=== PATIENT | female | born 1985 | race Two or more races ===

== ENCOUNTER 2017-01-21 16:28 | Emergency (ER) | payer OTHER ==
[~2017-01-21] VITALS: Ht 170.2 cm; Wt 50.8 kg
[~2017-01-21 16:28] MED LIST: NKM
[2017-01-21 17:16] LABS: APPEARANCE,URINE SLIGHTLY CLOUDY; KETONES,URINE NEGATIVE (NEGATIVE); LEUKOCYTE ESTERASE ,URINE 1+ (NEGATIVE); NITRITE,URINE NEGATIVE (NEGATIVE); PH,URINE 6 (4.5-8.0); PROTEIN,URINE NEGATIVE (NEGATIVE); UROBILINOGEN,URINE NORMAL MG/DL (0.0-1.0)
[2017-01-21 17:25] LABS: BACTERIA,URINE FEW /HPF; RBC,URINE TNTC /HPF (0 - 2); SQUAMOUS EPITHELIAL CELL,UR MODERATE /LPF (NONE/OCC)
--- NOTE | 2017-01-21 18:16 | Emergency Room Report ---
History of Present Illness General Chief Complaint: Complications Source: Patient Present Illness HPI 31-year-old female presents to the emergency department complaining of 4-10 in severity lower uterine cramping with vaginal bleeding x1 hour. Patient is and states that she did a at home urine test which was +3 days ago. Patient has not had [employer] followup. Patient denies fevers, chills, nausea, vomiting, constipation, diarrhea, and travel or ill contacts. She denies abdominal tenderness. Denies CP, Palpitations, LOC, AMS, dizziness, Changes in Vision, Sensation, paresthesias, or a sudden severe headache. Allergies: Coded Allergies: No Known Allergies (Unverified , 01/21/17) Patient History Past Medical History: see triage record Past Surgical History: none Pertinent Family History: none Now: No Reviewed Nursing Documentation: PMH: Agreed, PSxH: Agreed Nursing Documentation-PMH Past Medical History: No History, Except For Review of Systems All Other Systems: negative except mentioned in HPI Physical Exam Vital Signs Date Time Temp Pulse Resp B/P (MAP) Pulse Ox O2 Delivery O2 Flow Rate FiO2 01/21/17 16:19 98.2 67 17 105/71 99 Sp02 EP Interpretation: reviewed, normal General Appearance: no apparent distress, alert, GCS 15, non-toxic Head: normocephalic, atraumatic Eyes: bilateral eye normal inspection, bilateral eye PERRL ENT: hearing grossly normal, normal voice Neck: full range of motion Respiratory: lungs clear, normal breath sounds, speaking full sentences Cardiovascular #1: regular rate, rhythm Gastrointestinal: normal bowel sounds, non tender, soft, no guarding, no rebound Rectal: deferred Genitourinary: adnexa normal, ext genitalia/vag normal, other - OS is open, moderate BRB in the vaginal vault. Musculoskeletal: back normal, gait/station normal, normal range of motion Neurologic: alert, oriented x3, responsive, motor strength/tone normal, sensory intact, speech normal Skin: normal color, no rash, warm/dry, well hydrated Lymphatic: no adenopathy Medical Decision Making PA Attestation Dr. [email or web address] is my supervising Physician whom patient management has been discussed with. Diagnostic Impression: Primary Impression: Threatened in early ER Course 31-year-old female presents to the emergency department complaining of 4-10 in severity lower uterine cramping with vaginal bleeding x1 hour. Patient is and states that she did a at home urine test which was +3 days ago. Patient has not had [employer] followup. Patient denies fevers, chills, nausea, vomiting, constipation, diarrhea, and travel or ill contacts. She denies abdominal tenderness. Denies CP, Palpitations, LOC, AMS, dizziness, Changes in Vision, Sensation, paresthesias, or a sudden severe headache. Ddx considered but are not limited to: Fibroid, ectopic , Fibroid, Spontaneous Vital signs: are WNL, pt. is afebrile Pelvic Exam: OS is open, moderate BRB in the vaginal vault. H&PE are most consistent with: spontaneous , os is open with bleeding, will do US to look for retained products or ectopic ORDERS: -Urine hcg- Negative -serum Hcg Quant: 12 - Blood/RH type and screen- see attached labs ( O POSITIVE) -Pelvic US complete- IUP, thickened endometrium, moderate amount of blood in the vaginal vault. per fastener technologist verbal report ED INTERVENTIONS: -Tylenol PO -Discussed with patient that she needs to followup with [employer] for serial hCG measurements. Discussed with patient to return to the emergency department with worsening or new symptoms. DISCHARGE: At this time pt. is stable for d/c to home. Will provide printed patient care instructions, and any necessary prescriptions. Care plan and follow up instructions have been discussed with the patient prior to discharge. Labs Test 01/21/17 16:50 Urine Color Pale yellow Urine Appearance Slightly cloudy Urine pH 6 (4.5-8.0) Urine Specific [place] 1.015 (1.005-1.035) Urine Protein Negative (NEGATIVE) Urine Glucose (UA) Negative (NEGATIVE) Urine Ketones Negative (NEGATIVE) Urine Occult Blood 5+ (NEGATIVE) Urine Nitrite Negative (NEGATIVE) Urine Bilirubin Negative (NEGATIVE) Urine Urobilinogen Normal MG/DL (0.0-1.0) Urine Leukocyte Esterase 1+ (NEGATIVE) Urine RBC Tntc /HPF (0 - 2) Urine WBC 5-10 /HPF (0 - 2) Urine Squamous Epithelial Cells Moderate /LPF (NONE/OCC) Urine Bacteria Few /HPF (NONE) Urine HCG, Qualitative Negative Human Chorionic Gonadotropin, Quant 12 mIU/mL (1-6) Last Vital Signs Date Time Temp Pulse Resp B/P (MAP) Pulse Ox O2 Delivery O2 Flow Rate FiO2 01/21/17 16:19 98.2 67 17 105/71 99 Disposition: HOME, SELF-CARE Condition: Stable Scripts Acetaminophen* (TYLENOL EXTRA STRENGTH*) 500 Mg Tablet 500 MG ORAL Q6H, #20 TAB 0 Refills Prov: Anneliese Thompson 01/21/17 Referrals: NOT CHOSEN IPA/MD,REFERRING (PCP) Patient Instructions: Miscarriage, [id number], Threatened Miscarriage Additional Instructions: Take medications as directed. Follow up with a OBGYN in 3 days, even if your symptoms have resolved. --Your HCG today was : 12 --Please review list of primary care clinics, if you do not already have a primary care provider Return sooner to ED if new symptoms occur, or current symptoms become worse. - Please note that this Emergency Department Report was dictated using [employer] operator technology software, occasionally this can lead to erroneous entry secondary to interpretation by the dictation equipment. Anneliese Thompson Jan 21, 2017 18:16
[2017-01-21] MEDS ORDERED: TYLENOL EXTRA500 MG ORAL (20:23)
[2017-01-21 20:40] VITALS: BP 105/71
--- NOTE | 2017-01-22 11:00 | Diagnostic Imaging Report ---
Indication: PAIN, bleeding, positive recent test Technique: Transabdominal and transvaginal images Comparison: None Findings: Uterus measures 6.2 cm length by 3.3 cm AP endometrium measures 13 mm thick. No intrauterine gestational sac demonstrated. Right ovary measures 2.9 cm in length. Left ovary measures 2.2 cm in length. No free cul-de-sac fluid. No adnexal mass. No myometrial abnormality Impression: No intrauterine demonstrated. Differential considerations include spontaneous , early and therefore not yet visible intrauterine , ectopic . Correlate with clinical findings and serial beta hCGs
== END 2017-01-21 20:40 | disposition home or self-care (01) ==
LOC: EDBD 16:28 → EMR 17:41
DX: O20.0 Threatened abortion (principal)
CPT/HCPCS: 36415; 76830; 76856; 81003; 81025; 84702; 86850; 86900; 86901; 99284